=== PATIENT | female | born 1990 | race Caucasian/White ===

== ENCOUNTER 2017-01-02 09:54 | Day surgery (SDC) | payer SELFPAY ==
[2017-01-02] VITALS (18 sets, daily range): BP systolic 91–135; BP diastolic 50–87; PULSE 72–111; RESP 12–22; TEMP 97.5–98.4; O2SAT 93–98; Ht 156.2 cm; Wt 65.2 kg
[~2017-01-02] VITALS: Ht 156.2 cm; Wt 65.2 kg
[~2017-01-02 09:54] MED LIST: CEFAZOLIN 1 GRAM INJECTION IV ONE; DEXAMETHASONE 4mg/ml - 1ml INJECTION ONE; FENTANYL 100mcg/2ml INJECTION ONE; LIDOCAINE 1% (10mg/ml) 2ml SDV INJ ONE; LIDOCAINE 2% (20mg/ml) 5ml PF SDV ONE; LR 1,000 ML IV SCH; MIDAZOLAM 2mg/2ml INJECTION ONE; ONDANSETRON 4mg/2ml INJECTION ONE; PROPOFOL 200mg 20 ML IV ONE
[2017-01-02 10:32] LABS: BASOPHILS % (AUTO) 0.2 % (0-2); EOSINOPHILS # (AUTO) 0.2 T/MM3 (0-0.5); EOSINOPHILS % (AUTO) 2.6 % (0-4); HCT - HEMATOCRIT 42.2 % (36-46); HGB - HEMOGLOBIN 13.7 GM/DL (12-16); IMMATURE GRANULOCYTE # (AUTO) 0.02 T/MM3 (0.00-0.03); IMMATURE GRANULOCYTE % (AUTO) 0.2 % (0.0-0.5); LYMPHOCYTES # (AUTO) 1.7 T/MM3 (1-4.8); LYMPHOCYTES % (AUTO) 19.8 % (23-45); MEAN CORPUSCULAR HGB 28.7 UUG (26-34); MEAN CORPUSCULAR HGB CONC(MCHC 32.5 GM/DL (31-37); MEAN CORPUSCULAR VOLUME 88.5 UM3 (80-100); MEAN PLATELET VOLUME 9.3 UM3 (9.4-12.4); MONOCYTES # (AUTO) 0.3 T/MM3 (0-0.8); MONOCYTES % (AUTO) 3.6 % (0-9.0); NEUTROPHILS #(AUTO)-ABSOLUTE 6.1 T/MM3 (1.8-7.7); NEUTROPHILS % (AUTO) 73.6 % (33-66); RED BLOOD COUNT 4.77 M/MM3 (4.00-5.20); WBC - WHITE BLOOD COUNT 8.3 T/MM3 (4.5-11.0)
[2017-01-02 10:37] LABS: INR 1.09 (0.76-1.04); PROTHROMBIN TIME 11.9 SEC (9.31-12.49); PTT 34.3 SEC (24-36)
[2017-01-02 10:38] LABS: ANION GAP 14 MEQ/L (5-15); BUN/CREATININE RATIO 18 RATIO (6-26); CALCIUM 9.4 MG/DL (8.4-10.2); CHLORIDE 107 MEQ/L (98-107); CO2 - CARBON DIOXIDE 22 MEQ/L (22-30); CREATININE 0.5 MG/DL (0.7-1.2); GLOMERULAR FILTRATION RATE 148; GLUCOSE 98 MG/DL (65-110); POTASSIUM 3.9 MEQ/L (3.6-5); SODIUM 143 MEQ/L (134-144)
--- NOTE | 2017-01-02 11:02 | ANESPREOP ---
Anesthesia Record Date and Time DATE: 01/02/17 TIME: 104 Proposed Surgical Procedure D&C MISSED AB. Allergies: Coded Allergies: No Known Allergies (Unverified , 01/02/17) Ht/Wt/BMI Height: 5 ' 1.50 " Weight: 65.200 kg BMI: 26.7 kg/m2 Vital Signs Date Time Temp Pulse Resp B/P Pulse Ox O2 Delivery O2 Flow Rate FiO2 01/02/17 10:08 98.4 111 20 135/80 98 Room Air Medications Inpatient Medications Current Medications Medications (Trade) Dose Ordered Sig/Fareed Start Time Stop Time Status Last Admin Dose Admin Lactated Ringer's (Lactated Ringers) 1,000 ml @ 125 mls/hr Q8H 01/02/17 07:00 01/02/17 10:58 125 MLS/HR No Active Prescriptions or Reported Meds Currently on Beta Checo: No Medical/Surgical History Anesthesia PMH: Denies: Anesthesia Reactions (NO AIRWAY ISSUES), Cancer, Glaucoma, Malignant Hyperthermia Smoking Status: Current every day smoker Has pt. smoked today?: No Use Chewing Tobacco?: No Substance Use Type: does not use Alcohol Intake: rarely HX of Last Menstrual Period: 2015 Past Surgical History Orthopedic Surgeries: Abdominal Surgeries: Genitourinary Surgeries: Cardiac Surgeries: Endocrine Surgeries: Reproductive Surgeries: Yes - EMERGENCY Neurological Surgeries: Ear Surgeries: Nose Surgeries: Throat Surgeries: Other Surgeries: Anesthesia Adverse Reactions: FOUND none Family Hx of Anesthesia Advers: none Hx of Motion Sickness: No Pertinent Findings Laboratory Tests 01/02/17 10:15 Test 01/02/17 10:15 Activated Partial Thromboplast Time 34.3SEC (24-36) Prothromb Time International Ratio 1.09 (0.76-1.04) Physical Exam Respiratory: Lungs clear Cardiovascular: FOUND Regular rate, rhythm Airway Assessment Mallampati Score: I TMD: 3 Fingerbreadths Neck Extension: Good Overall Assessment: No Airway Concerns ASA: 2 Plan Anesthesia Plan: GETA Discussion Discussed risks/options/alternatives of anesthesia and questions answered. Patient consents. Nursing pain assessment noted. Present: Friend Attestation Statement Prior to the delivery of any anesthetic medication, I examined the patient, developed the plan, obtained the patient's consent and discussed the risk and benefits of the procedure with the patient/guardian. JOSE DAVID GAMEZ CRNA Jan 02, 2017 11:02
--- NOTE | 2017-01-02 12:02 | GYNOPNOTE1 ---
[facility] Postoperative Note Date of Operation: 01/02/17 Preoperative Diagnosis: Missed Preoperative Dx Comments 14.1 wk IUFD Postoperative Diagnosis: Same as Preoperative Suction D&C/D&E Surgeon: Jayson Palma MD Anesthesia Provider: Cristhian Stuart CRNA Anesthesia Type: general Estimated Blood Loss: 25cc JAYSON PALMA MD Jan 02, 2017 12:02
[2017-01-02] MEDS: HYDROMORPHONE 2mg/ml INJECTION IV PRN ×2 (12:13→12:24)
[2017-01-02] MEDS ORDERED: IBUPROFEN 800 MG TABLET PO PRN (13:15)
--- NOTE | 2017-01-02 13:23 | NUR ---
CARE ASSUMED CARE OF PT AT THIS TIME.
--- NOTE | 2017-01-02 13:25 | ANESPO ---
Post-Op Note Date 01/02/17 Time: 13:24 Status Pt Participated in Evaluation: Pt participated in person Vital Signs Date Time Temp Pulse Resp B/P Pulse Ox O2 Delivery O2 Flow Rate FiO2 01/02/17 13:00 76 14 104/67 97 Room Air 01/02/17 12:45 97.5 Respiratory Function: Airway patent, Regular respirations Cardiovascular Function: Regular pulse Mental Status: Alert/oriented Pain Level Intensity: 3 Hydration: Taking po fluids Complications during Recovery None apparent Follow-Up Instructions Instructions Per Surgeon CHAR MORA I SCOUT Jan 02, 2017 13:25
--- NOTE | 2017-01-02 14:10 | NUR ---
MANUEL STEIN RN, ASSUMES CARE OF PT AT THIS TIME.
--- NOTE | 2017-01-02 14:30 | NUR ---
'S NOTE - RETURN TO WORK PT ASKS IF IT WOULD BE POSSIBLE TO OBTAIN NOTE FROM STATING IT IS OKAY FOR PT TO RETURN TO WORK ON December. CALL PLACED TO DR PALMA. PER VERBAL DIRECTION OBTAINED, 'S NOTE STATING IT IS OKAY FOR PT TO RETURN TO WORK ON December, WRITTEN ON PHARMACY SCRIPT PAD, SIGNED FOR DR PALMA BY EMIL MOORE RN.
--- NOTE | 2017-01-02 20:15 | OPNOTEF ---
DATE OF SURGERY: 01/02/2017 PREOPERATIVE DIAGNOSIS A 26-year-old white female, G7, P4, with a 14.1-week IUFD diagnosed in the [facility] ER two days ago. POSTOPERATIVE DIAGNOSIS: same SURGEON: Jayson Houston MD PROCEDURES: Second trimester Suction D&C/D&E. EBL: 25 mL ANESTHESIA: General by Cristhian Stuart CRNA. COMPLICATIONS: None DESCRIPTION OF PROCEDURE This is a patient who has been seen twice in my office this . She has had a nuchal translucency first trimester screening which was negative for trisomy 18 or 21. She went into the [facility] ER a couple of days ago for cramping, spotting, and bleeding. They did a sonogram and diagnosed a 14.1-week IUFD. They were supposed to the D&C at their facility but for some reason did not and sent the patient home. She contacted our office to schedule it, and we put it on for today. When I saw the patient in preop and discussed the sonogram findings and the fact that we do not have a good reason for the demise, I offered further genetic testing and she declined. Questions were answered to her and her friend's satisfaction. We again discussed the procedure and she had no further questions on it. DESCRIPTION OF PROCEDURE After adequate general anesthesia by mask and gas, the patient was prepped and draped in the low lithotomy position. The bladder was drained. The heavy-weighted speculum was placed posteriorly and an anterior retractor was used to visualize the cervix, which was grasped at the 12 o'clock position. I had a bedside sonogram available. I serially dilated the patient's cervix to a 43 Dey. She has had three previous vaginal deliveries, so that made that easier. Then I used a #14 curved suction curette with the large tubing and curettaged the uterus. A large amount of tissue was obtained. Then I removed the suction curette and used ring forceps to remove the placenta and additional tissue. Then I did an additional pass with the suction. Then I had Dr. Webber come in at bedside with a sonogram and visualized the uterus. There is a thin uterine stripe. We examined the uterus left to right and top to bottom and saw no additional tissue or placenta. I used a sharp curette in all four quadrants and then the ring forceps a few more times and got no significant tissue. I had made one final pass with the suction curette and then the procedure was complete. The uterus had shrunk down significantly. There was minimal bleeding. Patient went to recovery room in stable condition. MINERVA
== END 2017-01-02 14:48 | disposition home or self-care (01) ==
LOC: SCU 09:54
PROVIDERS: ATTEND Obstetrics & Gynecology
DX: O02.1 Missed abortion (principal)
CPT/HCPCS: 36415; 80048; 85025; 85610; 85730; 86850; 86900; 86901